=== PATIENT | male | born 1960 | race Caucasian/White ===

== ENCOUNTER 2023-10-06 11:33 | Emergency (ER) | payer MEDICARE, OTHER ==
[~2023-10-06] VITALS: Ht 185.4 cm; Wt 89.8 kg
[~2023-10-06 11:33] MED LIST: COLACE100 MG PO; GABAPENTIN300 MG PO; GEMFIBROZIL600 MG PO; IBUPROFEN800 MG PO; NORCO 5-325 TA1 EACH PO; OXYCODONE HCL10 MG PO; PENICILLIN V P500 MG PO; PERCOCET 5-3251 EACH PO; PROPRANOLOL HCL20 MG PO; PROTONIX40 MG PO; REMERON30 MG PO; SUCRALFATE1 GM PO; ZOLOFT100 MG PO
[2023-10-06] MEDS ORDERED: KETOROLAC TROMETHAMINE 30 MG/ML VIAL IV ONE (12:00)
[2023-10-06] MEDS ORDERED: KETOROLAC TROME10 MG PO (12:39)
[2023-10-06 12:47] VITALS: BP 139/86
== END 2023-10-06 12:47 | disposition home or self-care (01) ==
LOC: ED 11:33
DX: S49.91XA Unspecified injury of right shoulder and upper arm, initial encounter (principal); I10 Essential (primary) hypertension; F17.200 Nicotine dependence, unspecified, uncomplicated; W22.8XXA Striking against or struck by other objects, initial encounter; Z88.5 Allergy status to narcotic agent; Z88.8 Allergy status to other drugs, medicaments and biological substances
CPT/HCPCS: 73030; 96374; 99283-25; J1885